=== PATIENT | male | born 1955 | race Caucasian/White ===

== ENCOUNTER 2017-05-29 05:16 | Inpatient (IN) ==
[2017-05-23 09:56] LABS: MANUAL DIFF NEEDED? NO
[2017-05-23 10:01] LABS: BASO% 0.5 % (0.0-0.8); EOS% 2.4 % (0.0-10.0); HEMATOCRIT 45.8 % (42.0-52.0); HEMOGLOBIN 15.7 g/dL (14.0-18.0); IMM GRAN# 0.04 X1000 (0.0-0.04); IMM GRAN% 0.5 % (0.0-0.5); LYMPH# 2.79 X1000 (1.2-3.4); LYMPH% 33.1 % (20.5-51.1); MCH 30.2 PG (27-31); MCHC 34.3 g/dL (33-37); MCV 88.1 FL (81-99); MONO# 0.66 X1000 (0.11-0.59); MONO% 7.8 % (1.7-9.3); MPV 8.7 FL (7.4-10.4); NEUT% 55.7 % (42.2-75.2); PLT 263 X1000 (130-400)
[2017-05-23 10:06] LABS: INR 0.92; PROTIME 9.6 Seconds (9.2-11.7); PTT 25.2 Seconds (22.0-36.0)
[2017-05-23 11:48] LABS: CALCIUM 9.6 mg/dL (8.8-10.2); POTASSIUM 4.3 mmol/L (3.5-5.1)
[2017-05-29] MEDS ORDERED: KEFZOL 2 GM/D5W 2 GM/50 ML IVPB ONE ×2 (05:31→15:14)
[2017-05-29] MEDS ORDERED: REGLAN ONE (05:31)
[2017-05-29] MEDS ORDERED: LR 1,000 ML ONE ×2 (05:31→06:28)
[2017-05-29] MEDS ORDERED: PEPCID ONE (05:31)
[2017-05-29] MEDS ORDERED: XYLOCAINE-MPF 2% ONE (06:29)
[2017-05-29] MEDS ORDERED: DIPRIVAN 1% ONE (06:29)
[2017-05-29] MEDS ORDERED: STERILE WATER INJ. ONE ×2 (06:31→08:17)
[2017-05-29] MEDS ORDERED: QUELICIN (DOSE) ONE (06:31)
[2017-05-29] MEDS ORDERED: NORCURON ONE ×2 (06:31→08:17)
[2017-05-29] MEDS ORDERED: FENTANYL ONE (06:33)
[2017-05-29] MEDS ORDERED: EPHEDRINE ONE (07:01)
[2017-05-29 07:52] LABS: URINE MICRO REVIEW NEEDED? NO; URINE SOURCE CATH
[2017-05-29 08:00] LABS: BILIRUBIN URINE NEGATIVE (NEGATIVE); BLOOD URINE TRACE (NEGATIVE); COLOR STRAW; GLUCOSE URINE NEGATIVE (NEGATIVE); LEUKOCYTES URINE NEGATIVE (NEGATIVE); NITRITE URINE NEGATIVE (NEGATIVE); PROTEIN URINE NEGATIVE (NEGATIVE); SP GRAVITY URINE 1.006; TURBIDITY URINE CLEAR (CLEAR); UR EPITHELIAL CELLS <10 /HPF (<10); URINE BACTERIA NEGATIVE /HPF; URINE RBC <10 /HPF (<10); URINE WBC <10 /HPF (<10); UROBILINOGEN URINE NORMAL (NORMAL)
[2017-05-29] MEDS ORDERED: NEO-SYNEPHRINE ONE (09:16)
[2017-05-29] MEDS ORDERED: OFIRMEV 1000 MG/ISOTONIC SOLN 1,000 MG/100 ML BOTTLE ONE (09:52)
[2017-05-29] MEDS ORDERED: ROBINUL ONE (09:56)
[2017-05-29] MEDS ORDERED: NEOSTIGMINE ONE (09:57)
[2017-05-29] MEDS ORDERED: NS 0 ML ONE (10:21)
[2017-05-29] MEDS ORDERED: NS 1,000 ML ONE (10:26)
[2017-05-29] MEDS ORDERED: MORPHINE ONE ×2 (10:26→10:59)
[2017-05-29] MEDS ORDERED: MORPHINE IV PRN (10:57)
[2017-05-29] MEDS ORDERED: TYLENOL PO PRN (10:57)
[2017-05-29] MEDS ORDERED: B & O 15A SUPP PR PRN (10:57)
[2017-05-29] MEDS ORDERED: DITROPAN PO PRN (10:57)
[2017-05-29] MEDS ORDERED: SODIUM CHLORIDE 0.9% INJ PRN (10:57)
[2017-05-29] MEDS ORDERED: NS 1,000 ML IV SCH (10:57)
[2017-05-29] MEDS ORDERED: LABETALOL IV PRN (10:57)
[2017-05-29] MEDS ORDERED: BENADRYL LIQUID PO PRN (10:57)
[2017-05-29] MEDS ORDERED: ZOFRAN IV PRN (10:57)
[2017-05-29] MEDS ORDERED: BENADRYL IV PRN (10:57)
[2017-05-29] MEDS ORDERED: PHENERGAN PR PRN (10:57)
[2017-05-29] MEDS ORDERED: PHENERGAN IV PRN (10:57)
[2017-05-29] MEDS ORDERED: PHENERGAN ONE ×2 (11:43→12:31)
[2017-05-29] MEDS ORDERED: NORCO-7.5 ONE ×2 (12:32→14:31)
[2017-05-29] MEDS: NORCO-7.5 PO PRN ×3 (12:40→22:30)
[2017-05-29] MEDS: PHENERGAN PO PRN (12:40)
[2017-05-29] MEDS: KEFZOL 2 GM/D5W 2 GM/50 ML IVPB IV SCH ×2 (15:15→22:36)
[2017-05-29] MEDS ORDERED: NITROGLYCERIN SL PRN (18:59)
[2017-05-29] MEDS ORDERED: ASTELIN NASAL SPRAY NAS PRN (18:59)
[2017-05-29] MEDS ORDERED: PATIENT'S OWN MED SUBQ SCH (19:00)
[2017-05-29] MEDS ORDERED: PAMELOR PO SCH (21:00)
[2017-05-29] MEDS ORDERED: CRESTOR PO SCH (21:00)
[2017-05-29] MEDS ORDERED: ALTACE PO SCH (21:00)
[2017-05-29] MEDS: COLACE PO SCH (21:16)
[2017-05-29] MEDS: XANAX PO SCH (21:16)
[2017-05-29] MEDS: PRILOSEC PO SCH (21:17)
[2017-05-29] MEDS: COREG PO SCH (21:19)
[2017-05-29] MEDS: HUMULIN R SUBQ SCH (23:28)
[2017-05-30] MEDS: NORCO-7.5 PO PRN ×2 (02:37→10:22)
[2017-05-30 05:45] LABS: HEMATOCRIT 40.4 % (42.0-52.0); HEMOGLOBIN 13.4 g/dL (14.0-18.0); MCH 30.5 PG (27-31); MCHC 33.2 g/dL (33-37); MCV 91.8 FL (81-99); MPV 9.1 FL (7.4-10.4); RBC 4.4 XMIL (4.7-6.1)
[2017-05-30 06:26] LABS: AGAP 15; BUN 17 mg/dL (8-22); CALCIUM 8.4 mg/dL (8.8-10.2); CHLORIDE 99 mmol/L (98-107); COSMO 284; POTASSIUM 4.4 mmol/L (3.5-5.1); SODIUM 141 mmol/L (136-145); TCO2 27 mmol/L (25-35)
[2017-05-30] MEDS: HUMULIN R SUBQ SCH (06:26)
[2017-05-30] MEDS: KEFZOL 2 GM/D5W 2 GM/50 ML IVPB IV SCH (06:27)
[2017-05-30] MEDS: PRILOSEC PO SCH (06:27)
[2017-05-30 07:31] VITALS: BP 142/90
[2017-05-30] MEDS ORDERED: DEMADEX PO SCH (09:00)
[2017-05-30] MEDS ORDERED: CLARITIN PO SCH (09:00)
[2017-05-30] MEDS ORDERED: ZOLOFT PO SCH (09:00)
[2017-05-30] MEDS ORDERED: PERIDEX MT SCH (09:00)
[2017-05-30] MEDS ORDERED: IMDUR PO SCH (09:00)
[2017-05-30] MEDS: COREG PO SCH (09:07)
[2017-05-30] MEDS: XANAX PO SCH (09:07)
[2017-05-30] MEDS: COLACE PO SCH (09:07)
--- NOTE | 2017-05-31 08:15 | OPERATIVE NOTE ---
PROCEDURE DATE: 05/29/2017 SURGEON: Glen Liu MD. PREOPERATIVE DIAGNOSES: 1. High risk prostate adenocarcinoma. 2. History of previous inflatable penile prosthesis placement. PRIMARY PROCEDURES: 1. Robotic-assisted laparoscopic prostatectomy. 2. Bilateral pelvic lymph node dissection. 3. Laparoscopic urethral suspension. INDICATIONS: A 62-year-old male, who presented with a rising PSA up to 26. He has prostate biopsy, which revealed multifocal Joyce's 6 prostate adenocarcinoma. He was counseled on treatment options and elected to proceed with surgery. He had a negative bone scan and CAT scan for metastatic disease. He has had a history of ITP and was counseled on the risks associated with operating next to the prosthesis reservoir. FINDINGS: The reservoir was placed in the midline as opposed to the side, which made the dissection fairly difficult. No obvious injury to the reservoir was noted at the end of the case, and his prosthesis was cycled without difficulties. Watertight vesicourethral anastomosis of 220 mL. Adequate hemostasis at the conclusion of the case. PROCEDURE IN DETAIL: After obtaining informed consent, patient was brought to the operating room. Perioperative antibiotics and general endotracheal anesthesia were administered. He was placed in lithotomy position, prepped and draped in sterile fashion. A 18-Samoan Dorado catheter was introduced with return of clear urine. We began by making a small stab incision with a 15 blade, and introduced the Veress needle connected to saline filled syringe. We confirmed a positive drop test, followed by aspiration of syringe fluid without evidence of GI contents or blood. We then insufflated his pneumoperitoneum to 50 mmHg. We marked our trocar sites in a standard prostatectomy fashion. Bovie electrocautery was used to incise the skin. Robotic camera trocar was introduced followed by insertion the camera itself. His peritoneal cavity was examined. He did not appear to have abdominal adhesions. The reservoir was seen and again was in the midline as opposed to the side. We placed the rest of the trocars under direct vision. He was placed in steep Trendelenburg position. Robot was docked. We began by incising the peritoneum approximately 3 cm above the rectum, and identified an isolated and transected right vas deferens. This was followed by identification and isolation of the right seminal vesicle. We made sure to minimize cautery laterally as to preserve neurovascular bundles. We then performed the same thing on the left side. Once this was done, we incised anteriorly to vas deferens to level of prostate, and posteriorly through Denonvilliers fascia into the perirectal plane. After that, we then turned our attention to manipulating the reservoir. In order to drop the bladder, I meticulously dissected voiding and minimizing cautery. Again, the reservoir was directly in the middle just above the bladder. After meticulous dissection, it was relatively free. Patient's prostheses was inflated in order to get as much fluid out of the reservoir and maximize our exposure. I then used a hemlock clip, clipped tissue adjacent to the reservoir to an anterior abdominal wall, thereby allowing us to move the reservoir away. We made sure that we did not make any contact with the reservoir with our instruments or the hemolock clip. Following that, and I and incised lateral to the medial umbilical ligament, which allowed us to get into the space of Retzius. The bladder was dropped. Endopelvic fascia was identified an isolated after reflecting fat. It was then incised laterally with dissection extending toward the apex of the prostate. Puboprostatic ligaments were divided sharply. The superficial dorsal venous complex was controlled with bipolar electrocautery. Deep dorsal venous complex was controlled with 0 V- Loc suture in a [id number] fashion with periosteal anterior elevation. Subsequent to that, we identified the bladder neck and used monopolar cautery to transect through it. The Dorado catheter was brought into the view and placed in anterior traction. We then transected the bladder neck circumferentially and developed a plane between the bladder and the prostate dissecting posteriorly until the seminal vesicles and vas deferens came into the view. Those were brought onto the operative field anteriorly. We then turned attention and freed up periprostatic fascia laterally on each side. This allowed us to identify the direction in which to reflect off the neurovascular bundle. The Hemoloc clips were used on cautery was avoided to reflect those bundles. We will follow the smooth contour of the prostate laterally. We then dissected posteriorly toward the apex of the prostate. Dorsal venous complex was then transected with monopolar cautery. Urethral shoulders were gently reflected, and urethra was transected sharply. I did used partial urethral length sparing technique, given the progression of disease. Once the urethra was transected sharply, prostate was delivered and freed into the field. We then irrigated the operative field, and he had some oozing along the bundles. I put a couple more Hem-o-sondra clips in order to avoid electrocautery. We then used Surgicel SNoW hemostatic agent adjacent to the neurovascular bundles. Following that, we turned attention to the pelvic lymph node dissection. On the patient's right side, external iliac vein was identified to its confluence with the common iliac vein. Lymph node packet was grasped, and freed with the following limits, pelvic wall laterally, perivesical fat and tissues medially, obturator vessels and nerve posteriorly, and the confluence of the external iliac vein into the common iliac vein superiorly. I was able to identify and preserve the obturator nerve. We placed a lymph node tissue into the EndoCatch bag. Pneumoperitoneal pressure was decreased. There was no evidence of bleeding or lymphatic leakage. Surgicel hemostatic agent was placed in the lymphadenectomy bed. We then performed the identical procedure on the left side with he same landmarks. Those lymph nodes were placed into the EndoCatch bag as well. Following that, we turned attention to the anastomosis. A 3-0 V-Loc suture was used to reapproximate the perivesical and periurethral fascia in a running fashion allowing us to take the pressure off the anastomosis. Those sutures were saved for the suspension later. We then performed formal vesicourethral anastomosis with 3-0 V-Loc suture that were cross tied, running in clockwise and counter clockwise fashion then subsequently cross tying those sutures appear intact. A fresh 18-Samoan Dorado catheter was placed, and bladder was distended with 240 mL of normal saline without any evidence of leakage. Pressure was decreased to 3 mmHg without evidence of bleeding. We then performed a formal laparoscopic urethral suspension by using previously placed Tam sutures, and threading the needles through the periosteum just lateral to the pubic symphysis allowing us to suspend the urethra. Pneumoperitoneal pressure was decreased again, and there was no evidence of bleeding. The needle count was performed and was correct. A Almas drain was introduced via the 4th arm trocar, and we secured to skin with 2-0 nylon suture. We undocked the robot, extending his supraumbilical incision and removed the prostate and pelvic lymph nodes en bloc. We irrigated the wounds copiously. A 0 Vicryl suture was used to reapproximate fascia in the supraumbilical incision as well as a 12 mm pediatric physician assistant trocar in an interrupted fashion. We then irrigated once again with 4-0 Monocryl sutures were used for subcuticular closure, followed by application of Dermabond skin adhesive. He was then extubated and taken to PACU for further recovery. Please note that prior to undocking the robot, nursing staff had cycled his device, and the reservoir appeared to inflate and deflate without problems or evidence of leakage or injury. ESTIMATED BLOOD LOSS: 500 mL. COMPLICATIONS: None. DISPOSITION: To PACU, subsequently floor for observation. Dorado catheter gravity drainage, and Almas drain to bulb suction. cc: Glen Liu MD
== END 2017-05-30 10:20 | disposition home or self-care (01) ==
LOC: SURHOLD 05:16 → 4N 18:48
PROVIDERS: ADMIT Urology; ATTEND Urology